=== PATIENT | female | born 1995 | race Caucasian/White ===

== ENCOUNTER 2017-07-10 08:33 | Outpatient (CLI) | payer OTHER ==
--- NOTE | 2017-07-10 10:53 | ULT ---
GALLBLADDER ULTRASOUND: History: 22-year-old female with abdominal pain. FINDINGS: Liver echogenicity is slightly heterogeneous. The gallbladder demonstrates no evidence of gallstones, wall thickening, edema, or pericholecystic fluid. Common bile duct is 0.2 cm. Visualized pancreas an d right kidney are unremarkable. IMPRESSION: Slightly heterogeneous liver echogenicity. No evidence of gallstones or other acute process. POS: [facility]
== END 2017-07-10 08:34 | disposition home or self-care (01) ==
LOC: ULT 08:33
PROVIDERS: ATTEND Internal Medicine
DX: R10.33 Periumbilical pain (principal); R93.2 Abnormal findings on diagnostic imaging of liver and biliary tract
CPT/HCPCS: 76705

== ENCOUNTER 2018-02-26 14:31 | Emergency (ER) | payer OTHER ==
[~2018-02-26 14:31] MED LIST: Iopamidol 370 76% 100 ML VIAL ONE; Iopamidol 370 76% 50 ML VIAL FS ONE
[2018-02-26 15:58] LABS: #Basophils 0.1 thou/uL (0.0-0.2); #Eosinphils 0.1 thou/uL (0.0-0.7); #Lymphocytes 1.5 thou/uL (1.20-3.40); #Monocytes 0.5 thou/uL (0.11-0.59); #Neutrophils 3.6 thou/uL (1.40-6.50); %Eosinophils 1.2 % (0.0-10.0); %Lymphocytes 26.3 % (28.0-48.0); %Monocytes 8.3 % (0.0-4.0); %Neutrophils 63.2 % (31.0-61.0); Mean Corpuscular HGB CONC 33.5 g/dL (32.0-36.0); Mean Corpuscular Hemoglobin 29.9 pg (25.0-35.0); Mean Corpuscular Volume 89.3 fL (78.0-98.0); Mean Platelet Volume 8.7 fL (7.4-10.4); Platelet Count 201 thou/uL (130-400); RBC Distribution Width 10.9 % (11.5-14.5); Red Blood Cell (RBC) Count 5.02 mill/uL (4.00-5.20); White Blood Cell (WBC) Count 5.7 thou/uL (4.8-10.8)
[2018-02-26 16:23] LABS: ALT (SGPT) 25 U/L (8-55); AST (SGOT) 22 U/L (5-34); Albumin 4.8 g/dL (3.5-5.0); Alkaline Phosphatase 65 U/L (40-150); Anion Gap 14 mmol/L (10-20); BUN (Urea Nitrogen) 10 mg/dL (7.0-18.7); Bilirubin, Total 0.7 mg/dL (0.2-1.2); Calc. Creatinine Clearance 0 mL/min (70-130); Calcium 10.1 mg/dL (7.8-10.44); Carbon Dioxide 21 mmol/L (22-29); Chloride 106 mmol/L (98-107); Estimated GFR-MDRD Greater than 90; Globulin 3.8 g/dL (2.4-3.5); Glucose 84 mg/dL (70-105); Potassium 3.9 mmol/L (3.5-5.1); Protein, Total 8.6 g/dL (6.0-8.3); Sodium 137 mmol/L (136-145)
[2018-02-26 16:43] LABS: Bilirubin Negative (Negative); Blood, Urine Negative (Negative); Clarity CLEAR (Clear); Glucose, Urine (Dipstick) Negative (Negative); Leukocyte Negative (Negative); Nitrite Negative (Negative); Protein, Urine (Dipstick) Negative (Neg-Trace); Specific Gravity, Urine 1.015 (1.002-1.036); Urobilinogen 0.2 mg/dL (0.2-1.0)
[2018-02-26 16:45] LABS: Pregnancy Test - Urine (BHCG) Negative (Negative); Pregu Control Background? CLEAR/WHITE (CLR/WHITE); Pregu Control Bar Appear? YES (CONTROL BAR); Specific Gravity 1.015 (1.002-1.036)
[2018-02-26] MEDS ORDERED: Morphine 2 MG/ML SYRINGE ONE (17:21)
[2018-02-26] MEDS ORDERED: Promethazine HCl 25 MG/ML VIAL ONE (17:21)
[2018-02-26] MEDS ORDERED: Ketorolac Tromethamine 30 MG/ML VIAL ONE (18:52)
--- NOTE | 2018-02-26 19:22 | CT ---
CT ABDOMEN WITH CONTRAST CT PELVIS WITH CONTRAST: DATE: 02/26/18 TIME: 5:45 p.m. HISTORY: 22-year-old female with generalized abdominal pain. History of C. difficile colitis. COMPARISON: None. TECHNIQUE: IV injection of iodinated contrast media: Isovue. Oral contrast media: Administered. FINDINGS: There is no evidence of colitis. No mural thickening of the colon. No signs of acute colonic divertic ulitis. No small bowel dilation. No ascites or pneumoperitoneum. Normal appearance of urinary bladder , appendix, abdominal aorta, kidneys, pancreas, adrenals, liver, and spleen. Lung bases are clear. No pneumoperitoneum. IMPRESSION: Negative. MARY CARMEN [place] POS: [facility]
== END 2018-02-26 19:52 | disposition home or self-care (01) ==
LOC: ERS 14:31
DX: K29.70 Gastritis, unspecified, without bleeding (principal); F41.9 Anxiety disorder, unspecified
CPT/HCPCS: 36415; 74177; 80053; 81003; 81025; 83605; 85025; 87040; 87077; 87086; 96361; 96374; 96375; J1885; J2270; J2550